=== PATIENT | female | born 1940 | race Caucasian/White ===

== ENCOUNTER 2017-10-28 15:06 | Emergency (ER) | payer OTHER ==
--- NOTE | 2017-10-28 15:34 | ED Physician Documentation ---
Fall - HISTORIAN Historian: patient - HPI Stated Complaint: Fall Chief Complaint: Fall Onset: just prior to arrival Where: home Context: slipped r: moderate Associated Symptoms:: no loss of consciousness Location of Pain/Injury: head, other (left elbow, coccyx) Injury to Right Extremity: none Injury to Left Extremity: elbow Further Comments: yes (77 year old female patient presents after a fall from standing at home. Patient states her feet slipped out from under her. C/O hitting back of her head, coccyx and right elbow. Denies LOC. C/O severe headache.) - ROS CONST: no problems NEURO: denies: anxiety, depression MS/SKIN/LYMPH: back pain (coccyx). denies: weakness, neck pain EYES/ENT: none CVS/RESP: none GI/: denies: nausea, vomiting - PAST HX Past History: diabetes Type 2, other (HTN, lymphoma, pacemaker) Allergies/Adverse Reactions: Allergies Allergy/AdvReac Type Severity Reaction Status Date / Time No Known Allergies Allergy Verified 10/28/17 15:25 Home Medications: Ambulatory Orders Medication Instructions Recorded Aspirin [Joce] 325 mg PO DAILY 10/28/17 Irbesartan/Hydrochlorothiazide 12.5 mg PO DAILY 10/28/17 [Irbesartan-Hctz 150-12.5 mg Tb] Sotalol HCl [Sotalol] 80 mg PO BID 10/28/17 gliPIZIDE [Glucotrol] 5 mg PO 0730 10/28/17 - SOCIAL HX Smoking History: non-smoker - FAMILY HX Family History: denies: none - VITAL SIGNS Vital Signs: Vital Signs Temp Pulse Resp BP Pulse Ox 98.3 F 89 179/79 98 10/28/17 15:21 10/28/17 15:21 10/28/17 15:21 10/28/17 15:21 - REVIEWED ASSESSMENTS Nursing Assessment Reviewed: Yes Vitals Reviewed: Yes ED Results Lab/Radiology - Radiology Radiology Impressions: Examination: Plain film sacrum/coccyx History: Fall Comparison exams: None provided Findings: 2 view of the sacrum/coccyx demonstrates osteopenia. Sacral farhat are symmetric. No fracture. Extensive osteophytic spurring. Sacroiliac joints are without evidence for fracture or fusion. Superior and inferior pubic rami and iliac wings, as visualized, are without abnormality. No abnormal angulation of the coccyx on lateral view. Lumbar spine degenerative spurs. Impression: Osteopenia. Extensive degenerative changes. No evidence for fracture. Electronically signed on Oct 28, 2017 4:25:54 PM MOUNTER SAXOPHONES by: Cal Tidwell Examination: Plain film elbow History: Fall Comparison exams: None provided Findings: 3 views of the elbow demonstrate normal cortical margins. No fracture. No dislocation. Radial head is within normal limits. No joint effusion Impression: No acute osseous abnormality. Electronically signed on Oct 28, 2017 4:24:04 PM MOUNTER SAXOPHONES by: Cal Tidwell Examination: CT head without contrast History: Fall Comparison exam: None available Technique: Noncontrast head CT protocol. Findings: Ventricles and sulci are prominent, though consistent for patient age. Cerebrocerebellar parenchyma demonstrates periventricular low attenuation consistent with small vessel disease. No evidence for parenchymal hemorrhage. No evidence for mass or mass effect. No midline shift. No extra axial fluid collections. Partial visualization of the paranasal sinuses, mastoid air cells, orbits, skull and scalp without gross irregularity. Impression: Age related changes. No acute parenchymal process. No hemorrhage. Electronically signed on Oct 28, 2017 4:36:46 PM MOUNTER SAXOPHONES by: Cal Tidwell - Orders Orders: ED Orders Category Date Time Status CT BRAIN W/O CONTRAST Stat Exams 10/28/17 Ordered ELBOW 3 VIEWS [RAD] Stat Exams 10/28/17 Ordered SACRUM & COCCYX 2 VIEW+ [RAD] Stat Exams 10/28/17 Ordered Fall Physical Exam - Physical Exam General Appearance: moderate distress Head: trauma (occipital area with 4 cm area of edema) Neck: non-tender, painless ROM, trachea midline Eye: MARYAN, EOMI, lids & conjunct. nml Resp/CVS: chest non-tender, no ecchymosis, breath sounds nml, no resp. distress , heart sounds nml Abdomen: soft, no organomegaly, normal bowel sounds, no abdominal bruit, no distension Neuro: oriented x3, CN's nml as tested, sensation nml, motor nml, mood/affect nml, vrt mechanic nml, reflexes nml, vrt mechanic symmetrical Skin: no rash, pallor, nml palp., dry Back: normal inspection, no CVA tenderness, other (coccyx tenderness with palpation of sacral area. ) Extremities: pelvis stable, hips non-tender, no pedal edema, nml ROM, nml color/ temp, other (left elbow with mild edema and erythema noted. ) - [place] Coma Score Eyes Open: Spontaneous Speech: Oriented Motor: Obeys Commands Discharge Clincal Impression: Fall Qualifiers: Encounter type: initial encounter Qualified Code(s): W19.XXXA - Unspecified fall, initial encounter Elbow contusion Qualifiers: Encounter type: initial encounter Laterality: left Qualified Code(s): S50.02XA - Contusion of left elbow, initial encounter Contusion of coccyx Qualifiers: Encounter type: initial encounter Qualified Code(s): S30.0XXA - Contusion of lower back and pelvis, initial encounter Headache Qualifiers: Headache type: post-traumatic Headache chronicity pattern: acute headache Intractability: not intractable Qualified Code(s): G44.319 - Acute post- traumatic headache, not intractable Referrals: Becca Lloyd MD [Primary Care Provider] - 2 Days Additional Instructions: Return to ER if if you have any of the follow symptoms: 1.More sleepy or confused 2.Worsening headache 3.Seizure 4.Vomiting, fever >101.5, or stiff neck 5.Loss of control or urine or bowel 6.Trouble walking 7.Use Tylenol every 4 hours as needed for Headache 8.Diet: Start with Clear liquids and advance diet as tolerated. 9.Follow up with your doctor in 2-3 days. Ice to left elbow. You may want to sit on a pillow or use a donut pillow available at the pharmacy for your coccyx pain. Condition: Stable Disposition: 01 HOME, SELF-CARE Decision to Admit: NO Decision Time: 16:43
--- NOTE | 2017-10-28 16:25 | Diagnostic Imaging Report ---
MIKE ROBERT (ANTIONETTE) - [facility] [address] [facility] [address] Report Submission Date: Oct 28, 2017 4:24:04 PM PRIVACY SPECIALIST Patient Study Name: JESSICA AMATO Date: Oct 28, 2017 3:53:38 PM PRIVACY SPECIALIST Modality Type: CR Gender: F Description: UPPER EXTREMITY : 40 Institution: [facility] Physician: MIKE ROBERT) - ER Examination: Plain film elbow History: Fall Comparison exams: None provided Findings: 3 views of the elbow demonstrate normal cortical margins. No fracture. No dislocation. Radial head is within normal limits. No joint effusion Impression: No acute osseous abnormality. Electronically signed on Oct 28, 2017 4:24:04 PM PRIVACY SPECIALIST by: Cal CH
--- NOTE | 2017-10-28 16:26 | Diagnostic Imaging Report ---
MIKE ROBERT (ANTIONETTE) - [facility] [address] [facility].[address] [address] Report Submission Date: Oct 28, 2017 4:25:54 PM PARK ATTENDANT Patient Study Name: JESSICA AMATO Date: Oct 28, 2017 3:58:18 PM PARK ATTENDANT Modality Type: CR Gender: F Description: SPINE : 40 Institution: [facility] Physician: MIKE ROBERT) - ER Examination: Plain film sacrum/coccyx History: Fall Comparison exams: None provided Findings: 2 view of the sacrum/coccyx demonstrates osteopenia. Sacral farhat are symmetric. No fracture. Extensive osteophytic spurring. Sacroiliac joints are without evidence for fracture or fusion. Superior and inferior pubic rami and iliac wings, as visualized, are without abnormality. No abnormal angulation of the coccyx on lateral view. Lumbar spine degenerative spurs. Impression: Osteopenia. Extensive degenerative changes. No evidence for fracture. Electronically signed on Oct 28, 2017 4:25:54 PM PARK ATTENDANT by: Cal CH
[2017-10-28] MEDS ORDERED: NALBUPHINE HCL 10 MG/1 ML IM ONE (16:40)
[2017-10-28] MEDS ORDERED: KETOROLAC TROMETHAMINE 30 MG/1ML VIAL IM ONE (16:40)
[2017-10-28 17:23] VITALS: BP 183/72
--- NOTE | 2017-10-28 17:29 | Diagnostic Imaging Report ---
MIKE ROBERT (ANTIONETTE) - [facility] [address] [facility] [address] [address] Report Submission Date: Oct 28, 2017 4:36:46 PM COAL OR ORE CONTROLLER Patient Study Name: JESSICA AMATO Date: Oct 28, 2017 4:09:12 PM COAL OR ORE CONTROLLER Modality Type: CT\SR Gender: F Description: CT BRAIN W/O CONTRAST : 40 Institution: [facility] Physician: MIKE ROBERT) - ER Examination: CT head without contrast History: Fall Comparison exam: None available Technique: Noncontrast head CT protocol. Findings: Ventricles and sulci are prominent, though consistent for patient age. Cerebrocerebellar parenchyma demonstrates periventricular low attenuation consistent with small vessel disease. No evidence for parenchymal hemorrhage. No evidence for mass or mass effect. No midline shift. No extra axial fluid collections. Partial visualization of the paranasal sinuses, mastoid air cells, orbits, skull and scalp without gross irregularity. Impression: Age related changes. No acute parenchymal process. No hemorrhage. Electronically signed on Oct 28, 2017 4:36:46 PM COAL OR ORE CONTROLLER by: Cal CH
== END 2017-10-28 17:15 | disposition home or self-care (01) ==
LOC: ED 15:06
DX: S50.02XA Contusion of left elbow, initial encounter (principal); S30.0XXA Contusion of lower back and pelvis, initial encounter; W19.XXXA Unspecified fall, initial encounter; Y93.9 Activity, unspecified; Y99.9 Unspecified external cause status; G44.319 Acute post-traumatic headache, not intractable
CPT/HCPCS: 70450; 72220; 73080; J1885; J2300; 96372; 99283